=== PATIENT | female | born 1955 ===

== ENCOUNTER 2022-06-08 10:52 | Outpatient (CLI) | payer OTHER | END 2022-06-08 10:54 | disposition home or self-care (01) | LOC: SONOGRAMA 10:52 | PROVIDERS: ATTEND Pathology Anatomic Pathology & Clinical Pathology | DX: D34 Benign neoplasm of thyroid gland (principal); E04.9 Nontoxic goiter, unspecified; E03.9 Hypothyroidism, unspecified ==